=== PATIENT | male | born 1980 | race Hispanic/Latino ===

== ENCOUNTER 2024-04-07 16:25 | Inpatient (IN) | payer SELFPAY ==
[~2024-04-07] VITALS: Ht 165.1 cm; Wt 115.7 kg
[2024-04-07 16:33] VITALS: PULSE 90; RESP 18; TEMP 97.6
[2024-04-07] MEDS: SODIUM CHLORIDE 0.9% 1000ML 1,000 ML IV SCH (17:11)
[2024-04-07] MEDS: ONDANSETRON HCL INJ 2MG/ML 2ML 2 MG/ML VIAL IV STA (17:11)
[2024-04-07] MEDS: ACETAMINOPHEN 325 MG TAB PO ONE (17:35)
[2024-04-07 18:43] VITALS: BP 123/60; PULSE 76; RESP 16; TEMP 98.2; O2SAT 100
[2024-04-07 20:34] VITALS: PULSE 65; RESP 18; O2SAT 97
[2024-04-07 20:49] VITALS: BP 99/60; PULSE 75; RESP 18; TEMP 98; O2SAT 97
[2024-04-07 21:00] VITALS: BP 99/60; PULSE 75; RESP 18; TEMP 98; O2SAT 100
[2024-04-07 22:22] VITALS: BP 99/60; PULSE 75; RESP 18; TEMP 98; O2SAT 100
[2024-04-08] VITALS (9 sets, daily range): BP systolic 92–113; BP diastolic 49–72; PULSE 60–94; RESP 18–20; TEMP 97.4–98.4; O2SAT 95–99
[2024-04-08] MEDS ORDERED: HYDROCODONE/APAP 5MG-325MG TAB PO PRN (02:15)
[2024-04-08] MEDS ORDERED: MELATONIN 5 MG TABLET PO PRN (02:15)
[2024-04-08] MEDS ORDERED: POTASSIUM CHLORIDE 20 MEQ TAB CR PO PRN (02:15)
[2024-04-08] MEDS ORDERED: LIDOCAINE 4% PATCH TP PRN (02:15)
[2024-04-08] MEDS ORDERED: DOCUSATE SODIUM 100 MG CAP PO PRN (02:15)
[2024-04-08] MEDS ORDERED: DEXTROSE 50% SYRINGE 50 ML IV PRN (02:15)
[2024-04-08] MEDS ORDERED: BENZONATATE 100 MG CAP PO PRN (02:15)
[2024-04-08] MEDS ORDERED: SIMETHICONE 80 MG CHEW PO PRN (02:15)
[2024-04-08] MEDS ORDERED: ACETAMINOPHEN 325 MG TAB PO PRN (02:15)
[2024-04-08] MEDS ORDERED: DIPHENHYDRAMINE HCL 25 MG CAP PO PRN (02:15)
[2024-04-08] MEDS ORDERED: ALBUTEROL/IPRATROPIUM 3 ML NEB NEB PRN (02:15)
[2024-04-08] MEDS ORDERED: HYDRALAZINE HCL 20 MG/ML VIAL IV PRN (02:15)
[2024-04-08] MEDS: SODIUM CHLORIDE 0.9% 1000ML 1,000 ML IV SCH (05:30)
[2024-04-08 06:59] LABS: BILIRUBIN,URINE NEGATIVE (NEGATIVE); COLOR,URINE YELLOW (YELLOW); GLUCOSE, URINE NEGATIVE (NEGATIVE); KETONES,URINE NEGATIVE (NEGATIVE); LEUKOCYTE ESTERASE ,URINE NEGATIVE (NEGATIVE); NITRITE,URINE NEGATIVE (NEGATIVE); PH,URINE 6.5 (5 - 7); PROTEIN,URINE DIPSTICK NEGATIVE (NEGATIVE); URINE UROBILINOGEN 1 mg/dL (0.2 - 1)
[2024-04-08 07:02] LABS: CLARITY,URINE CLEAR (CLEAR); RBC,URINE 0-5 /HPF (0-5); WBC,URINE (MAN) 0-5 /HPF (0-5)
[2024-04-08 07:03] LABS: BACTERIA,URINE RARE /HPF; EPITHELIAL CELLS,URINE RARE /LPF
[2024-04-08] MEDS: PANTOPRAZOLE SOD 40 MG TABEC PO SCH (08:53)
[2024-04-08] MEDS: Vancomycin IV 1 GM in SODIUM CHLORIDE 0.9% 250ML 250 ML IV ONE (08:53)
[2024-04-08 14:32] LABS: BASOPHILS # (AUTO) 0.1 (0.0-0.1); BASOPHILS % 0.5 % (0.0-1.0); EOSINOPHILS # (AUTO) 0.3 (0.0-0.4); EOSINOPHILS % 2.1 % (0.0-6.0); HEMATOCRIT 41.8 % (38.2-49.6); HEMOGLOBIN 13.6 g/dL (14.0-18.0); LYMPHOCYTES # (AUTO) 2.5 (1.0-3.2); LYMPHOCYTES % 19.2 % (18.0-39.1); MEAN CORPUSCULAR HEMOGLOBIN 27.4 pg (28-32); MEAN CORPUSCULAR HGB CONC 32.5 g/dL (31-35); MEAN CORPUSCULAR VOLUME 84.1 fL (81-99); MONOCYTES # (AUTO) 1.2 (0.2-0.8); MONOCYTES % 9.6 % (4.4-11.3); NEUTROPHILS # (AUTO) 8.8 (2.1-6.9); NEUTROPHILS % 68.3 % (38.7-80.0); PLATELET COUNT 309 x10e3/uL (140-360); RED BLOOD COUNT 4.97 x10e6/uL (4.3-5.7); RED CELL DISTRIBUTION WIDTH 13.4 % (11.7-14.4)
[2024-04-08 15:14] LABS: ANION GAP 14.1 mmol/L (8-16); CALCIUM 9.1 mg/dL (8.4-10.2); CREATININE, SERUM 0.86 mg/dL (0.72-1.25); POTASSIUM 4.1 mmol/L (3.5-5.1)
[2024-04-08] MEDS: ENOXAPARIN SOD INJ 40 MG/0.4 ML SYR SC SCH (18:30)
[2024-04-09] VITALS (7 sets, daily range): BP systolic 100–103; BP diastolic 56–65; PULSE 56–74; RESP 18–20; TEMP 97.9–98.2; O2SAT 95–100
[2024-04-09 06:24] LABS: BASOPHILS # (AUTO) 0.1 (0.0-0.1); BASOPHILS % 0.5 % (0.0-1.0); EOSINOPHILS # (AUTO) 0.2 (0.0-0.4); EOSINOPHILS % 2.1 % (0.0-6.0); HEMATOCRIT 38.5 % (38.2-49.6); HEMOGLOBIN 11.9 g/dL (14.0-18.0); LYMPHOCYTES % 19.3 % (18.0-39.1); MEAN CORPUSCULAR HEMOGLOBIN 27.1 pg (28-32); MEAN CORPUSCULAR HGB CONC 30.9 g/dL (31-35); MEAN CORPUSCULAR VOLUME 87.7 fL (81-99); MONOCYTES # (AUTO) 0.8 (0.2-0.8); MONOCYTES % 8.2 % (4.4-11.3); NEUTROPHILS # (AUTO) 7.1 (2.1-6.9); NEUTROPHILS % 69.6 % (38.7-80.0); PLATELET COUNT 273 x10e3/uL (140-360); RED BLOOD COUNT 4.39 x10e6/uL (4.3-5.7); RED CELL DISTRIBUTION WIDTH 13.4 % (11.7-14.4); WHITE BLOOD COUNT 10.23 x10e3/uL (4.8-10.8)
[2024-04-09 07:05] LABS: ANION GAP 12.9 mmol/L (8-16); CALCIUM 8.7 mg/dL (8.4-10.2); CREATININE, SERUM 0.8 mg/dL (0.72-1.25); POTASSIUM 3.9 mmol/L (3.5-5.1)
[2024-04-09 07:27] LABS: THYROID STIMULATING HORMONE 1.715 uIU/mL (0.350-4.940)
[2024-04-10] VITALS (9 sets, daily range): BP systolic 105–151; BP diastolic 64–95; PULSE 60–102; RESP 18–21; TEMP 97.8–98.6; O2SAT 95–100
[2024-04-10] MEDS ORDERED: KETAMINE HCL INJ 50 MG/ML 10 ML VIAL ONE (08:36)
[2024-04-10] MEDS ORDERED: BUPIVACAINE 0.5%/EPI 30 ML SDV INJ ONE (08:54)
[2024-04-10] MEDS ORDERED: ACETAMINOPHEN/CODEINE 300MG - 30MG TAB PO PRN (09:15)
[2024-04-11] VITALS (9 sets, daily range): BP systolic 95–117; BP diastolic 58–69; PULSE 51–76; RESP 17–20; TEMP 97.8–99.1; O2SAT 96–99
[2024-04-11 08:27] LABS: BASOPHILS # (AUTO) 0.1 (0.0-0.1); BASOPHILS % 0.7 % (0.0-1.0); EOSINOPHILS # (AUTO) 0.2 (0.0-0.4); EOSINOPHILS % 2.3 % (0.0-6.0); HEMOGLOBIN 12.2 g/dL (14.0-18.0); LYMPHOCYTES # (AUTO) 1.7 (1.0-3.2); LYMPHOCYTES % 16.3 % (18.0-39.1); MEAN CORPUSCULAR HEMOGLOBIN 27.2 pg (28-32); MEAN CORPUSCULAR HGB CONC 31.3 g/dL (31-35); MEAN CORPUSCULAR VOLUME 87.1 fL (81-99); MONOCYTES # (AUTO) 0.8 (0.2-0.8); MONOCYTES % 7.8 % (4.4-11.3); NEUTROPHILS # (AUTO) 7.4 (2.1-6.9); NEUTROPHILS % 72.7 % (38.7-80.0); PLATELET COUNT 262 x10e3/uL (140-360); RED BLOOD COUNT 4.48 x10e6/uL (4.3-5.7); RED CELL DISTRIBUTION WIDTH 13.2 % (11.7-14.4); WHITE BLOOD COUNT 10.22 x10e3/uL (4.8-10.8)
[2024-04-11 08:47] LABS: ANION GAP 11.8 mmol/L (8-16); CALCIUM 8.8 mg/dL (8.4-10.2); CREATININE, SERUM 0.79 mg/dL (0.72-1.25); POTASSIUM 3.8 mmol/L (3.5-5.1)
[2024-04-11] MEDS: ONDANSETRON HCL INJ 2MG/ML 2ML 2 MG/ML VIAL IV PRN (10:44)
[2024-04-11] MEDS: Morphine 4mg INJECTION 4 MG/ML INJ IV PRN (10:44)
[2024-04-12 04:00] VITALS: BP 100/69; PULSE 56; RESP 17; TEMP 98.2; O2SAT 96
[2024-04-12 07:20] VITALS: PULSE 62; RESP 18; O2SAT 98
[2024-04-12 07:57] VITALS: BP 116/70; PULSE 55; RESP 18; TEMP 98.1; O2SAT 98
[2024-04-12 08:03] VITALS: BP 116/70; PULSE 55; RESP 18; TEMP 98.1; O2SAT 98
[2024-04-12 11:38] VITALS: BP 109/55; PULSE 55; RESP 18; TEMP 98.5; O2SAT 98
[2024-04-12 13:19] VITALS: PULSE 59; RESP 18; O2SAT 96
[2024-04-12] MEDS ORDERED: ONDANSETRON HCL 4 MG ORAL DISINTEGRATING TAB PO PRN (15:00)
== END 2024-04-12 15:14 | disposition home or self-care (01) | DRG 571 ==
LOC: FSED 16:29 → ERHOLD 17:13 → MED/SURG2 18:40
PROVIDERS: ADMIT Internal Medicine; ATTEND Internal Medicine
PROC: 0Y963ZZ Drainage of Left Inguinal Region, Percutaneous Approach (ICD-10-PCS; 2024-04-07)
PROC: 0JBL0ZZ Excision of Right Upper Leg Subcutaneous Tissue and Fascia, Open Approach (ICD-10-PCS; 2024-04-10)
PROC: 0JBM0ZZ Excision of Left Upper Leg Subcutaneous Tissue and Fascia, Open Approach (ICD-10-PCS; principal; 2024-04-10 08:26)
DX: L02.416 Cutaneous abscess of left lower limb (principal); Z68.41 Body mass index [BMI] 40.0-44.9, adult; L73.2 Hidradenitis suppurativa; L02.415 Cutaneous abscess of right lower limb; L02.32 Furuncle of buttock; L02.224 Furuncle of groin; E86.0 Dehydration; E66.01 Morbid (severe) obesity due to excess calories; R73.03 Prediabetes
CPT/HCPCS: 36415; 80048; 80053; 80202; 81001; 81003; 82948; 83036; 83605; 84443; 85025; 87040; 87071; 87075; 87086; 87205; 94799; 99252; 99284; J0295; J0692; J1650; J2270; J2405; J7030; J7040; J7050